=== PATIENT | male | born 1985 | race Caucasian/White ===

== ENCOUNTER 2021-04-30 07:27 | Emergency (ER) | payer OTHER ==
[2021-04-30 07:32] VITALS: PULSE 109; RESP 18; TEMP 98.2
[2021-04-30 07:36] VITALS: BP 124/69
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
--- NOTE | 2021-04-30 08:03 | XR ---
Left wrist HISTORY: Trauma and pain 4 views the left wrist There is a lucency present at the lateral metaphyseal left radius as well as intra-articular lucency the medial aspect of the radiocarpal joint. Soft tissue swelling is noted. No evident dislocation. IMPRESSION: Distal left radial intra-articular nondisplaced fracture
[2021-04-30] MEDS ORDERED: IBUPROFEN 600 MG TAB PO STA (08:20)
== END 2021-04-30 08:26 | disposition home or self-care (01) ==
LOC: EC 07:27
DX: S52.502A Unspecified fracture of the lower end of left radius, initial encounter for closed fracture (principal); V89.2XXA Person injured in unspecified motor-vehicle accident, traffic, initial encounter; Y92.410 Unspecified street and highway as the place of occurrence of the external cause; F17.200 Nicotine dependence, unspecified, uncomplicated
CPT/HCPCS: 29125; 99283